=== PATIENT | female | born 1945 | race Caucasian/White ===

== ENCOUNTER 2018-02-10 11:50 | Inpatient (IN) | payer MEDICARE ==
[~2018-02-10] VITALS: Ht 160 cm; Wt 113.4 kg
[~2018-02-10 11:50] MED LIST: ALEVE220 MG PO; ALLEGRA180 MG PO; ASPIRIN325 OR; ATENOLOL 25 MG25 M1 PO; CIPRO500 MG PO; CLARITIN10 MG PO; COLACE100 MG PO; CRANBERRY450 M1 PO; CYMBALTA30 MG PO; DETROL LA2 MG PO; ENABLEX15 MG PO; FEXOFENADINE H180 MG PO; FIBERCON625 M1 PO; FLONASE 0.05%50 MCG NASAL; HYDROCODON-ACE1 EAC8 PO; K-DUR10 MEQ PO; KEFLEX500 MG PO; KLOR-CON 10 ER10 MEQ PO; KLOR-CON 1010 MEQ PO; LASIX 40 MG TAB40 M1 PO; LASIX 40 MG TAB40 M2 PO; LASIX 40 MG TAB40 MG PO; LEVAQUIN 500 M500 M2 PO; LOTENSIN20 MG PO; LOTENSIN40 MG PO; MACROBID 100 M100 M1 PO; MILK OF MA2400 MG/10 PO; MIRALAX17 GM PO; NEXIUM40 MG PO; NITROGLYCERIN0.4 MG SL; NORCO 10-325 T1 EACH PO; NYSTATIN1 EA10; OXYCONTIN20 M1 PO; OXYCONTIN20 MG PO; PAXIL10 MG; PLAVIX OR; POTASSIUM20 PO; PREDNISONE 20 M20 MG PO; PREMARIN0.625 MG; PROTONIX40 M1 PO; SENOKOT-S1 TA1 PO; SINGULAIR 10 MG10 M1 PO; SYMBICORT160 MCG/4. INH; TOLTERODINE TART2 MG; VICODIN ES TAB1 EACH PO
[2018-02-10 11:56] VITALS: BP 143/78
[2018-02-10 12:26] LABS: ABSOLUTE BASOPHILS 0.1 thou/uL (0.0-0.2); ABSOLUTE EOSINOPHILS 0.1 thou/uL (0.0-0.7); ABSOLUTE LYMPHOCYTES 2.3 thou/uL (0.8-5.3); ABSOLUTE MONOCYTES 0.7 thou/uL (0.0-1.2); ABSOLUTE NEUTROPHILS 2.9 thou/uL (1.6-8.1); BASOPHILS 1.1 %; EOSINOPHILS 1.9 %; HEMOGLOBIN 13.2 gm/dL (12.0-15.0); LYMPHOCYTES 37.9 %; MCH 33.7 pg (26.0-34.0); MCHC 33.7 g/dL (28.0-37.0); MCV 99.8 fL (80.0-100.0); MONOCYTES 11.6 %; MPV 7.1 fl. (7.2-11.1); NUCLEATED RBCS 0 /100WBC; PLATELET COUNT* 214 thou/uL (150-400); POLYS 47.5 %; RDW-CV 13.5 % (10.5-14.5); WBC 6.2 thou/uL (4.0-11.0)
[2018-02-10 12:35] LABS: CALCIUM 8.8 mg/dL (8.5-10.1); CREATININE 1.1 mg/dL (0.6-1.3); POTASSIUM 4.2 mmol/L (3.5-5.1)
[2018-02-10 12:36] LABS: ALBUMIN 3.1 g/dL (3.4-5.0); TOTAL BILIRUBIN 0.4 mg/dL (<0.1-1.0); TOTAL PROTEIN 7.3 g/dL (6.4-8.2)
[2018-02-10 15:00] VITALS: BP 142/58
[2018-02-10 15:30] VITALS: BP 146/91
[2018-02-11 03:50] LABS: HEMATOCRIT 34.6 % (37.0-47.0); HEMOGLOBIN 11.7 gm/dL (12.0-15.0); MCH 33.8 pg (26.0-34.0); MCHC 33.9 g/dL (28.0-37.0); MCV 99.8 fL (80.0-100.0); MPV 7.2 fl. (7.2-11.1); RBC 3.47 mil/uL (4.20-5.00); RDW-CV 13.3 % (10.5-14.5); WBC 5.2 thou/uL (4.0-11.0)
[2018-02-11 04:25] LABS: CALCIUM 8.5 mg/dL (8.5-10.1); CREATININE 0.9 mg/dL (0.6-1.3); MAGNESIUM 2.3 mg/dL (1.8-2.4); POTASSIUM 4.3 mmol/L (3.5-5.1)
[2018-02-11 09:30] VITALS: BP 124/60
[2018-02-11 15:46] VITALS: BP 118/68
[2018-02-11 20:45] VITALS: BP 137/72
[2018-02-12 09:00] VITALS: BP 107/43
[2018-02-12 15:50] VITALS: BP 152/85
[2018-02-13 11:44] VITALS: BP 117/60
[2018-02-13] MEDS ORDERED: [UNRECOGNIZED DRUG - OTHER] RC (12:14)
[2018-02-13 12:16] VITALS: BP 117/60
== END 2018-02-13 13:31 | DRG 389 ==
LOC: M.ERS 11:50 → M.ORTHSURG 14:05 → M.TBA-ER 14:05 → M.ORTHSURG 15:09
PROVIDERS: Physician Assistant; ADMIT Family Medicine
DX: K56.41 Fecal impaction (principal); J96.11 Chronic respiratory failure with hypoxia; Z68.41 Body mass index [BMI] 40.0-44.9, adult; E66.2 Morbid (severe) obesity with alveolar hypoventilation; Z71.3 Dietary counseling and surveillance; K80.20 Calculus of gallbladder without cholecystitis without obstruction; G89.29 Other chronic pain; J44.9 Chronic obstructive pulmonary disease, unspecified; I10 Essential (primary) hypertension; I25.10 Atherosclerotic heart disease of native coronary artery without angina pectoris; F17.210 Nicotine dependence, cigarettes, uncomplicated; Z90.710 Acquired absence of both cervix and uterus; Z95.5 Presence of coronary angioplasty implant and graft; Z79.51 Long term (current) use of inhaled steroids; Z79.899 Other long term (current) drug therapy; Z88.0 Allergy status to penicillin; Z88.8 Allergy status to other drugs, medicaments and biological substances; Z82.49 Family history of ischemic heart disease and other diseases of the circulatory system

== ENCOUNTER 2018-04-28 10:04 | Inpatient (IN) | payer MEDICARE ==
[2018-04-28] VITALS (16 sets, daily range): BP systolic 78–121; BP diastolic 44–79
[~2018-04-28] VITALS: Ht 157.5 cm; Wt 115.9 kg
[~2018-04-28 10:04] MED LIST changes: +[UNRECOGNIZED DRUG - OTHER] RC
[2018-04-28 10:48] LABS: HEMATOCRIT 36.2 % (37.0-47.0); HEMOGLOBIN 11.5 gm/dL (12.0-15.0); MCH 31.9 pg (26.0-34.0); MCHC 31.8 g/dL (28.0-37.0); MCV 100.4 fL (80.0-100.0); MPV 8.4 fl. (7.2-11.1); NUCLEATED RBCS 0 /100WBC; PLATELET COUNT* 273 thou/uL (150-400); RDW-CV 14.1 % (10.5-14.5); WBC 21.8 thou/uL (4.0-11.0)
[2018-04-28 10:57] LABS: BE -11.9 mmol/L (-2 to +3); HCO3 14.4 mmol/L (22.0-26.0); PCO2 33.9 mmHg (35.0-45.0); PO2 117.3 mmHg (75.0-100.0)
[2018-04-28 10:59] LABS: pH 7.245 (7.340-7.450)
[2018-04-28 11:02] LABS: CALCIUM 8.8 mg/dL (8.5-10.1); CREATININE 5.7 mg/dL (0.6-1.3)
[2018-04-28 11:05] LABS: POTASSIUM 6.8 mmol/L (3.5-5.1)
[2018-04-28 11:19] LABS: ALBUMIN 1.8 g/dL (3.4-5.0); MAGNESIUM 1.7 mg/dL (1.8-2.4); TOTAL BILIRUBIN 0.8 mg/dL (<0.1-1.0); TOTAL PROTEIN 7.4 g/dL (6.4-8.2)
[2018-04-28 11:31] LABS: ABSOLUTE LYMPHOCYTES 0.7 thou/uL (0.8-5.3); ABSOLUTE MONOCYTES 1.1 thou/uL (0.0-1.2); ABSOLUTE NEUTROPHILS 20.1 thou/uL (1.6-8.1)
[2018-04-28 11:32] LABS: PLATELET ESTIMATE ADEQUATE; POLYCHROMASIA 1+; TOXIC GRANULATION 1+
[2018-04-28] MEDS ORDERED: PROZAC10 MG PO (12:01)
[2018-04-28] MEDS ORDERED: PROTONIX40 M1 PO (12:01)
[2018-04-28] MEDS ORDERED: ZANAFLEX4 MG PO (12:01)
[2018-04-28] MEDS ORDERED: BENAZEPRIL HCL20 MG PO (12:02)
[2018-04-28 16:43] LABS: BE -13.4 mmol/L (-2 to +3); HCO3 13.7 mmol/L (22.0-26.0); PCO2 36.3 mmHg (35.0-45.0); PO2 185.1 mmHg (75.0-100.0); pH 7.196 (7.340-7.450)
[2018-04-28 16:47] LABS: CALCIUM 8.8 mg/dL (8.5-10.1); CREATININE 5.2 mg/dL (0.6-1.3)
[2018-04-28 16:49] LABS: POTASSIUM 6.4 mmol/L (3.5-5.1)
[2018-04-28 19:43] LABS: CALCIUM 7.9 mg/dL (8.5-10.1); CREATININE 4.9 mg/dL (0.6-1.3)
[2018-04-28 19:44] LABS: POTASSIUM 5.8 mmol/L (3.5-5.1)
[2018-04-28 20:33] LABS: URINE BILIRUBIN NEGATIVE (Negative); URINE BLOOD 3+ (Negative); URINE CLARITY CLEAR; URINE COLOR YELLOW; URINE GLUCOSE-RANDOM NEGATIVE (Negative); URINE KETONES NEGATIVE (Negative); URINE LEUKOCYTES-REFLEX 1+ (Negative); URINE NITRITE-REFLEX NEGATIVE (Negative); URINE PROTEIN TRACE (Negative)
[2018-04-28 20:51] LABS: SQUAMOUS 4-10 Moderate /LPF (0-3); URINE RBC 3-10 Few /HPF (0-2); URINE WBC-REFLEX 6-15 Few /HPF (0-5)
[2018-04-28 20:52] LABS: BACTERIA-REFLEX 1-9 Few /HPF (None Seen); CRYSTALS None Seen /LPF (None Seen); FINE GRANULAR CASTS 0-3 Few /LPF (None Seen)
[2018-04-29] VITALS (39 sets, daily range): BP systolic 82–124; BP diastolic 47–77
--- NOTE | 2018-04-29 03:45 | NUR ---
ASSUMED CARE OF PATIENT AT 1900. AFEBRILE. BLOOD PRESSURE TRENDING DOWNWARD, LEVOPHED STARTED. SEE DOCUMENTATION FOR TITRATION. CHEST TUBE REMAINS TO SUCTION. SMALL AMOUNT OF BUBBLING CONSISTENT WITH REPORT. PATIENT COLD AND PULSES WEAK. REMAINS INTUBATED AND SEDATED. RESTRAINTS CHARTED. NOT PROGRESSING TOWARDS POC GOALS.
[2018-04-29 06:00] LABS: BE 1.7 mmol/L (-2 to +3); HCO3 25.6 mmol/L (22.0-26.0); PCO2 37.8 mmHg (35.0-45.0); pH 7.449 (7.340-7.450)
[2018-04-29 06:03] LABS: PO2 133.3 mmHg (75.0-100.0)
[2018-04-29 09:05] LABS: MAGNESIUM 1.4 mg/dL (1.8-2.4); PHOSPHORUS* 4.6 mg/dL (2.5-4.9)
[2018-04-29 09:12] LABS: ALBUMIN 1.5 g/dL (3.4-5.0); CALCIUM 8.5 mg/dL (8.5-10.1); CREATININE 4.2 mg/dL (0.6-1.3); TOTAL BILIRUBIN 0.8 mg/dL (<0.1-1.0); TOTAL PROTEIN 6.4 g/dL (6.4-8.2)
[2018-04-29 09:18] LABS: POTASSIUM 4.4 mmol/L (3.5-5.1)
--- NOTE | 2018-04-29 14:24 | NUR ---
REPORT GIVEN TO JARON WINN. ALL QUESTIONS ANSWERED.
[2018-04-29 15:13] LABS: APTT 31.9 Seconds (25.0-31.3); INR 1.3; PROTIME 12.8 Seconds (9.20-11.50)
[2018-04-29 16:05] LABS: IgA 470 mg/dL (64-422); IgG 880 mg/dL (700-1600); IgM 115 mg/dL (26-217)
--- NOTE | 2018-04-29 16:47 | NUR ---
THIS RN RESUMED CARE OF PT IN AFTERNOON. PT SLOWLY PROGRESSING TOWARD GOALS. BP STABLE ON LEVO. PT REMAINS ON VERSED, AND FENTANYL, REMAINS VENTILATED. AFEBRILE. THICK ORAL SECRETIONS SUCTIONED EVERY 1-2 HOURS, SPUTUM SAMPLE COLLECTED. GREEN REMAINS IN PLACE - URINE SAMPLE COLLECTED. CHEST TUBE REMAINS IN PLACE WITH AIR LEAK - MDS AWARE. NO FAMILY AT BEDSIDE THIS SHIFT.
--- NOTE | 2018-04-29 17:00 | EKG ---
[place] [address] ELECTROCARDIOGRAM REPORT Name: HARIKA PALACIOS Room: [address] ADM IN .R.#: [id number] Admission: 04/28/18 Attend Phys: Emmanuelle Mukherjee Discharge: Date of : 41 Report #: [id number] THIS REPORT FOR: //name// [facility] ED Test Date: 2018-04-28 Test Time: 10:54:34 Pat Name: HARIKA PALACIOS Department: Room: [facility] Gender: F City Council Member: KATARINA ORTEZ : 1945 Requested By: Caterina Mejia Order Number: [id number] MD: Yusef Aponte Measurements Intervals [place] Rate: 57 P: -14 MS: 164 QRS: -38 QRSD: 122 T: 68 QT: 430 QTc: 419 Interpretive Statements Sinus rhythm Left bundle branch block Low voltage throughout Compared to ECG 05/12/2014 02:05:23 Left bundle-branch block now present Sinus tachycardia no longer present Ventricular premature complex(es) no longer present First degree AV block no longer present Fusion complex(es) no longer present Left-axis deviation no longer present T-wave abnormality no longer present Electronically Signed On 04-29-2018 17:00:13 CDT by Yusef Aponte [email or web address] <ELECTRONICALLY SIGNED> By: Yusef Aponte MD, [facility] 04/29/18 1700 1054 1054 Yusef Aponte MD, FAC /EPI
--- NOTE | 2018-04-29 23:34 | CON ---
[address] [address] CONSULTATION Name: HARIKA PALACIOS Room: [address] IN M.R.#: [id number] Admission: 04/28/18 Attend Phys: Emmanuelle Mukherjee Discharge: Date of : 41 Report #: [id number] THIS REPORT FOR: //name// CC: Rafael Rice DATE OF SERVICE: 04/29/2018 CONSULTATION: Infectious Diseases. HISTORY OF PRESENT ILLNESS: The patient is a 72-year-old white female, admitted to the hospital yesterday. The patient has a history of being weak for 2-4 weeks. She became so weak that she fell. She reports that she "slid down." She was found on the ground unconscious by the family. She aroused and was brought to the ER. In the ER, the patient again became somewhat delirious with hypotension and confusion. She was intubated. In the ER, a subclavian catheter was placed for IV access. After the catheter was placed, it was noted patient had developed a pneumothorax, so a chest tube was placed and then repositioned. The patient did have a number of metabolic abnormalities as noted below. The patient was started on Levaquin and taken to the ICU. Infectious Disease consultation was requested. PAST MEDICAL HISTORY: The patient has a past history of coronary artery disease, COPD, hypertension, depression, low back pain, arthritis pain, chronic pain. PROCEDURES: Include abdominal aortic aneurysm stent repair, coronary angioplasty, back surgery, hysterectomy. ALLERGIES: THE PATIENT HAS ALLERGIES TO PENICILLIN AND CEPHALOSPORINS. SOCIAL HISTORY: The patient is . She reportedly continues to smoke a pack per day. She has no history of alcohol or drugs. REVIEW OF SYSTEMS: Unavailable as the patient currently completely sedated, on a ventilator. PHYSICAL EXAMINATION: GENERAL: The patient appears older than her stated age, sedated, but looks comfortable, not in distress. VITAL SIGNS: The patient has been afebrile since coming to the hospital. Blood pressure 97/64, on pressors. SKIN: Very pale without any rash nor exanthem. There is some intertrigo in the right groin. ENT: Negative. Tubes appear to be in the proper position. HEART: Sounds distant S1 and S2, [place], [place] [address] CONSULTATION Name: PHILIPHARIKA Room: [address] IN [facility].#: [id number] Admission: 04/28/18 Attend Phys: Emmanuelle Mukherjee Discharge: Date of : 41 Report #: [id number] LUNGS: Clear to anterior auscultation on the ventilator. She has thick white secretions. ABDOMEN: The belly is obese, soft, not tender. Bowel sounds hypoactive. EXTREMITIES: Somewhat puffy, but otherwise unremarkable. LABORATORY DATA: The blood gas after intubation showed pH 7.19, pCO2 36, pO2 185 on 100% FiO2. CBC showed white count 21.8, hemoglobin 11.5, platelet 273,000. Electrolytes showed sodium 137, potassium 4.4, chloride 99, bicarbonate 28. BUN gone from 107 to 90, creatinine gone from 5.7 to 4.2. Liver function tests showed elevation of alkaline phosphatase at 211. Chest x-ray showed left upper lobe infiltrate and possible right-sided atelectasis or mass. ASSESSMENT AND PLAN: In summary, the patient with number of chronic illnesses, who has been ill and then becomes acutely ill. She was found to be in respiratory failure with pneumonia, renal failure, leukocytosis, and now has suffered a pneumothorax with central line placement. At this time, I would recommend we treat the patient with broad-spectrum antibiotic for community-acquired pneumonia with sepsis. We will use azithromycin plus Zosyn. We will await results of cultures of blood, urine, and sputum. We can send urinary antigens for pneumococcus and legionella. We can check for signs of sepsis with serial lactate and procalcitonins. Check coagulation studies and D-dimer. We will do serial chest x-rays and CBCs. We will continue to watch renal function. If it is not improved, the patient may require dialysis. I appreciate the opportunity of input in the care of this complex patient. I will be happy to follow her through the weekend until Dr. Haddad returns on Monday. <ELECTRONICALLY SIGNED> By: Mp Lopez MD 04/29/18 2334 1414 2053Mp Lopez MD /nt
[2018-04-30] VITALS (69 sets, daily range): BP systolic 70–133; BP diastolic 42–96
--- NOTE | 2018-04-30 06:59 | NUR ---
PT REMIANS ON VENTILATOR. ETT7.5 23 @LIP. AC 12, TV 550, PEEP 5 AND FIO2 50%. PT DOES NOT FOLLOW COMMANDS. GREEN INTACT AND PATENT DRAINING CLOUDY ARVIND URINE TO BEDSIDE BAG. CHEST TUBE INTACT TO LEFT LUNG AND DRIANING SMALL AMOUNT OF BLOODY DRAINAGE NOTED. VSS AND NO ACUTE CHANGES DURIGN SHIFT WILL CONTINUE TO MONITOR
[2018-04-30 07:40] LABS: HEMATOCRIT 33.1 % (37.0-47.0); HEMOGLOBIN 10.7 gm/dL (12.0-15.0); MCH 32.6 pg (26.0-34.0); MCHC 32.4 g/dL (28.0-37.0); MCV 100.9 fL (80.0-100.0); MPV 8.4 fl. (7.2-11.1); RBC 3.28 mil/uL (4.20-5.00); RDW-CV 13.7 % (10.5-14.5); WBC 17.2 thou/uL (4.0-11.0)
[2018-04-30 07:49] LABS: CALCIUM 8.3 mg/dL (8.5-10.1); CREATININE 3.3 mg/dL (0.6-1.3); MAGNESIUM 1.9 mg/dL (1.8-2.4); POTASSIUM 4.6 mmol/L (3.5-5.1)
[2018-04-30 07:59] LABS: BE 0.7 mmol/L (-2 to +3); HCO3 27.3 mmol/L (22.0-26.0); PCO2 52.6 mmHg (35.0-45.0); PO2 72.2 mmHg (75.0-100.0); pH 7.333 (7.340-7.450)
--- NOTE | 2018-04-30 09:17 | CON ---
[address] [address] CONSULTATION Name: HARIKA PALACIOS Room: [address] IN .R.#: [id number] Admission: 04/28/18 Attend Phys: Emmanuelle Mukherjee Discharge: Date of : 41 Report #: [id number] THIS REPORT FOR: //name// CC: Rafael Rice DATE OF SERVICE: 04/29/2018 REFERRING PHYSICIAN: Marcel Rice DO CHIEF COMPLAINT: Respiratory failure. HISTORY OF PRESENT ILLNESS: The patient is a 72-year-old female who presented to the Emergency Room. She has had altered mental status, was found unresponsive by her family. EMS was called. In the Emergency Room, she was evaluated. She had a central line inserted. She had deterioration in her O2 saturations, level of consciousness. She was intubated. The patient was found to have a pneumothorax on the left side, a chest tube was inserted. REVIEW OF SYSTEMS: Not available. ALLERGIES: CELEBREX, KEFLEX, PENICILLIN. PAST MEDICAL HISTORY: COPD, hypertension, coronary artery disease status post stents, abdominal aortic aneurysm repair, rosacea, some sort of throat surgery, details are not available. She has had a hysterectomy as well. She had spinal disk surgery in the past and carpal tunnel surgery. SOCIAL HISTORY: She is a daily smoker, amount unknown. FAMILY HISTORY: Not obtainable. CURRENT MEDICATIONS: Levophed, fentanyl, midazolam. PHYSICAL EXAMINATION: VITAL SIGNS: Blood pressure 116/72, respiratory rate of 11, pulse rate 65, regular, temperature 97.7 degrees, weight 219 pounds. GENERAL APPEARANCE: Sedated and intubated. Orogastric tube. She has a right chest tube. Burgess catheter in place as well. HEAD: Atraumatic. EYES: Pupils are round, equal, reactive. ORAL CAVITY: Moist. No lesions. FACE: No facial swelling or edema. She has some facial hair present on her chin. There is no edema present. NOSE: Nasal passages are patent. EARS: External auricular structures are normal. There [place] [address] CONSULTATION Name: PALACIOSHARIKA Room: [address] IN [facility]#: [id number] Admission: 04/28/18 Attend Phys: Emmanuelle Mukherjee Discharge: Date of : 41 Report #: [id number]. NECK: No adenopathy. She has a bulky neck. No carotid bruits. JVD negative. CHEST: Coarse breath sounds, left rhonchi. No crackles. CARDIOVASCULAR: Regular rhythm, distant heart tones. ABDOMEN: Obese. No organomegaly or tenderness. EXTREMITIES: Warm to touch. There is no edema. SKIN: Warm and dry without rash. NEUROLOGIC: She is sedated. MEDICAL IMAGING STUDIES: Chest x-ray today reveals bilateral opacities with evidence of consolidation, left chest tube in place, no obvious pneumothorax. The ET tube is in adequate position. The packing room supervisor felt that there was residual pneumothorax on the left side. LABORATORY DATA: Sodium 137, potassium 4.4, chloride 99, CO2 of 28, BUN of 90, creatinine 4.2, glucose 131. Total protein, alkaline phosphatase is normal as is the SGOT. EGFR is 10. INR 1.3. Hemoglobin and hematocrit of 11.5 and 36.2 with a white count of 21,800. Arterial blood gas today reveals pH 7.45, pCO2 of 38, pO2 of 133, bicarbonate 25. This is on 60% FiO2. She has been weaned down to 40%, PEEP of 5, tidal volume 650. ASSESSMENT: 1. Pneumonia. 2. Respiratory failure requiring intubation. 3. Chronic obstructive airways disease. 4. Chronic kidney disease superimposed on acute kidney disease. 5. Left pneumothorax status post chest tube insertion. 6. Coronary artery disease. 7. Peripheral vascular disease. PLAN: Continue with antibiotic therapy. We will initiate aerosol treatments. I do not see a need for steroids at this time. Followup x-ray, ABGs and ventilator adjustments will be made accordingly. <ELECTRONICALLY SIGNED> By: Alfred Weinstein MD 04/30/18 0917 0930 [id number] Weinstein MD /nt
--- NOTE | 2018-04-30 12:01 | NUR ---
PATIENT CONVERTED FROM SINUS TACHYCARDIA TO A-FIB WITH RAPID RATE. DR RENEE PAGED. AWAITING RESPONSE.
[2018-04-30 12:08] LABS: LAMBDA FREE LIGHT CHAINS 65.2 mg/L (5.7-26.3)
--- NOTE | 2018-04-30 17:09 | NUR ---
PATIENT SOMEWHAT PROGRESSING TOWARDS GOALS. CONVERTED FROM NSR TO A-FIB TODAY, RATE CONTROLLED BUT AT TIMES TACHY IN 120S AND 130S. CARDIZEM GTT STARTED AT 5MG/HR. LEVOPHED TITRATED DOWN TO 2 MCG/MIN. FENTANYL AND VERSED FOR SEDATION, REFER TO MED TITRATIONS. MORE RESTLESS AT BEGINNING OF SHIFT, NOW CALM, BREATHING WITH THE VENTILATOR, BUT STILL AWAKE TO STIMULATION. CHEST TUBE REMAINS IN PLACE TO LEFT CHEST, MINIMAL BUBBLING WITH INSPIRATION NOTED. PATIENT DOES HAVE SUBCUTANEOUS EMPYSEMA AROUND CHEST TUBE SITE AND CENTRAL LINE. CENTRAL LINE DRAWS BACK BLOOD IN ALL PORTS EXCEPT BROWN PORT. Q2 TURNS TO MAINTAIN FURTHER SKIN INTEGRITY, PATIENT HAS NOTED BLISTERS AND BRUSIING TO COCCYX, APPEARS TO BE DEEP TISSUE INJURY. PER SON PATIENT HAS BEEN IMMOBILE FOR YEARS. HOWEVER, SKIN REMAINS INTACT TO BOTTOM. PHOTOS TAKEN YESTERDAY. SONCIERRA BROUGHT IN DPOA PAPERWORK, COPIED AND PLACED IN CHART. UPDATED BY PHYSICIAN AND DENIES FURTHER CONCERNS ABOUT CURRENT PLAN OF CARE. PER PULMONARY POSSIBLE WEANING TRIAL TOMORROW.
[2018-05-01] VITALS (35 sets, daily range): BP systolic 77–144; BP diastolic 45–81
[2018-05-01 05:56] LABS: BE -4.2 mmol/L (-2 to +3); HCO3 21.5 mmol/L (22.0-26.0); PCO2 41.6 mmHg (35.0-45.0); PO2 85.7 mmHg (75.0-100.0); pH 7.331 (7.340-7.450)
--- NOTE | 2018-05-01 07:28 | NUR ---
PT REMAINS STABLE ON VENT, FENTANYL AND VERSED GTTS FOR SEDATION THOUGH PT IS EASILY AROUSABLE. CARDIZEM GTT TITRATED TO MAIN HR WNL. LEVOPHED GTT TITRATED FOR MAP >65. COMPLETE BED BATH GIVEN, HAIR SHAMPOOED. AFTER BATH CHEST TUBE DRESSING HAD COME LOOSE AND UNDERLYING GAUZE WAS NOTED TO BE SATURATED WITH SEROSANGUINOUS AND BROWN/GREEN DRAINAGE, AIR LEAK PRESENT. DRESSING REPLACED, PETROLEUM GAUZE PLACED AROUND INSERTION SITE COVERED BY DRAIN SPONGES AND OCCLUSIVE FOAM TAPE. NO AIR LEAK NOTED AT THIS TIME. PT HAS BEEN TURNED Q2HR THROUGHOUT THE SHIFT.
[2018-05-01 12:29] LABS: HEMATOCRIT 33.9 % (37.0-47.0); MCH 32.7 pg (26.0-34.0); MCHC 32.3 g/dL (28.0-37.0); MCV 101.2 fL (80.0-100.0); MPV 8.4 fl. (7.2-11.1); NUCLEATED RBCS 0 /100WBC; PLATELET COUNT* 207 thou/uL (150-400); RBC 3.35 mil/uL (4.20-5.00); RDW-CV 14.4 % (10.5-14.5)
[2018-05-01 12:36] LABS: CALCIUM 9.5 mg/dL (8.5-10.1); CREATININE 2.8 mg/dL (0.6-1.3); POTASSIUM 3.9 mmol/L (3.5-5.1)
[2018-05-01 13:00] LABS: ABSOLUTE LYMPHOCYTES 0.6 thou/uL (0.8-5.3); ABSOLUTE MONOCYTES 0.2 thou/uL (0.0-1.2); ABSOLUTE NEUTROPHILS 15.2 thou/uL (1.6-8.1); METAMYELOCYTES 1 %
[2018-05-01 13:01] LABS: CLUMPED PLTS OCCASIONAL; LARGE PLATELETS OCCASIONAL; POLYCHROMASIA Occasional
[2018-05-01 13:02] LABS: MACROCYTES Occasional
[2018-05-01 14:05] LABS: BE -7.2 mmol/L (-2 to +3); HCO3 18.8 mmol/L (22.0-26.0); PCO2 39.9 mmHg (35.0-45.0); PO2 109.9 mmHg (75.0-100.0)
[2018-05-01 14:08] LABS: pH 7.292 (7.340-7.450)
--- NOTE | 2018-05-01 14:36 | NUR ---
WOUND CARE NOTE: CONSULT RECEIVED FOR WOUNDS. PATIENT PRESENTS WITH MULTIPLE WOUNDS TO HER BILATERAL BUTTOCKS AND SACROCOCCYGEAL REGION, CLUSTERED THEY MEASURE 19.5X20X0.2. AT SACROCOCCYGEAL REGION THERE IS AN EVOLVING DEEP TISSUE INJURY WITH PURPLE DISCOLORATION AND BRUISING. EXCORIATIONS TO BILATERAL BUTTOCKS AND MULTIPLE ULCERATIONS TO BILATERAL MEDIAL BUTTOCKS. CLEANSED ALL, APPLIED Z-GUARD PASTE. TURNED PATIENT TO LEFT SIDE WITH WEDGES. RECOMMEND JANE MATTRESS-IN USE TURN Q2 HOURS-SIDE TO SIDE ONLY UNLESS EATING LIMIT HOB <30 DEGREES IF ABLE ENCOURAGE NUTRITION/HYDRATION ONCE ABLE Z-GUARD PASTE BID AND PRN LIMIT LAYERS OF LINEN UNDER PATIENT.
[2018-05-02] VITALS (21 sets, daily range): BP systolic 91–135; BP diastolic 50–69
[2018-05-02 05:15] LABS: ABSOLUTE LYMPHOCYTES 0.7 thou/uL (0.8-5.3); ABSOLUTE MONOCYTES 0.4 thou/uL (0.0-1.2); ABSOLUTE NEUTROPHILS 11.3 thou/uL (1.6-8.1); HEMATOCRIT 30.6 % (37.0-47.0); HEMOGLOBIN 9.9 gm/dL (12.0-15.0); LYMPHOCYTES 5.8 %; MCH 33.2 pg (26.0-34.0); MCHC 32.4 g/dL (28.0-37.0); MCV 102.5 fL (80.0-100.0); MONOCYTES 2.8 %; MPV 8.6 fl. (7.2-11.1); NUCLEATED RBCS 0 /100WBC; PLATELET COUNT* 152 thou/uL (150-400); POLYS 91.4 %; RBC 2.99 mil/uL (4.20-5.00); RDW-CV 14.2 % (10.5-14.5); WBC 12.4 thou/uL (4.0-11.0)
[2018-05-02 05:24] LABS: CALCIUM 8.5 mg/dL (8.5-10.1); CREATININE 2.6 mg/dL (0.6-1.3)
--- NOTE | 2018-05-02 07:21 | NUR ---
SEDATED ON VENTILATOR, VERSED AND FENTANYL GTTS INFUSING ORDERED. CARDIZEM GTT TITRATED FOR HR WNL. LEVOPHED TITRATED OFF, BP WNL. TOLERATING TUBE FEED, HIGHEST Q4HR RESIDUAL 135ML. TUBE FEED ON HOLD SINCE 0400, NPO FOR BRONCHOSCOPY SCHEDULED AT 1000. COMPLETE BED BATH GIVEN, Z-GUARD APPLIED TO WOUNDS ON BUTTOCKS. PT HAS BEEN TURNED Q2HR THROUGHOUT THE SHIFT.
[2018-05-02 08:10] LABS: BE -7.9 mmol/L (-2 to +3); HCO3 17.3 mmol/L (22.0-26.0); PCO2 34.6 mmHg (35.0-45.0); PO2 73.3 mmHg (75.0-100.0); pH 7.318 (7.340-7.450)
--- NOTE | 2018-05-02 10:15 | NUR ---
INTERDISCIPLINARY ROUNDS: PT ON VENT, HAD BRONCH THIS AM. LONG DISCUSSION WITH SON/CIERRA AT BEDSIDE. HE IS PRIMARY DPOA. CIERRA STATES PT LIVES IN HER HOME, SON DEANDRE LIVES WITH HER. PT ALSO HAS DTR MAIA THAT HELPS CARE FOR PT. PT HAD HOSPITAL STAY AND THEN 18 DAY STAY IN SNF AT [facility], WAS DC'D WITH HH BUT CIERRA CANNOT REMEMBER NAME OF AGENCY. PER CIERRA, HE STATED THAT PT HASN'T DONE WELL SINCE SNF DC, HE FELT SHE WAS DC'D 'TOO SOON'. HE VOICED THAT PT TAKES NARCOTICS AND PREFERS TO MANAGE THEM HERSELF. HE STATED PT SMOKES AND DRINKS 'COKE' DOESN'T EAT TOO WELL. HE DIDN'T THINK SHE HAD BEEN TAKING VERY GOOD CARE OF HERSELF RECENTLY, ASKED IF HE THOUGHT SHE WAS DEPRESSED AND HE SAID 'SHE HASN'T BEEN THE SAME SINCE SPOUSE 20YRS AGO.' HE STATED THAT DEANDRE COOKS AND CLEANS BUT WORKS DURING THE DAY SO PT IS ALONE. CIERRA MANAGES FINANCES AND DOES SHOPPING. AIDEN SETS UP MEDS AND CHECKS ON PT. PT HAS O2, CPAP, NEB, WALKER, SHOWER BENCH AND GRAB BARS. CIERRA VOICED CONCERNS ABOUT PT'S CARE AT [facility], IF NEEDS SNF AGAIN MAY WANT TO DISCUSS OTHER OPTIONS. EXPLAINED SNF BENEFITS, PT HAS USED 18 DAYS AND NOT HAD BREAK IN EPISODE YET. COPY OF DPOA ON CHART. CM TO FOLLOW
--- NOTE | 2018-05-02 19:40 | NUR ---
PT ASSESSMENT CHARTED. VSS AT THIS TIME. LEVOPHED RESTARTED AT 1700 FOR MAP <60. PT HAD EPISODE OF RESPIRATORY CHANGES THAT WERE NOTIFIED TO THE PARKS AND RECREATION MANAGER. VENT SETTINGS CHANGED WITHOUT CHANGE IN STATUS. CHEST XRAY OBTAINED. FENTANYL STOPPED AT 1800 WITH SUCCESSFUL CHANGES IN PT'S BREATHING. CHEST TUBE DRESSING CHANGED. LEFT SUBCLAVIAN CENTRAL LINE DRESSING CHANGED DUE TO LEAKING. CHEST XRAY CONFIRMED THAT CENTRAL LINE IS NOT IN ORIGINAL POSITION BUT IS STILL CENTRALLY LOCATED. THESE RESULTS WERE CALLED TO [facility] .
[2018-05-03] VITALS (51 sets, daily range): BP systolic 84–144; BP diastolic 45–98
[2018-05-03 05:15] LABS: ABSOLUTE LYMPHOCYTES 0.6 thou/uL (0.8-5.3); ABSOLUTE MONOCYTES 0.5 thou/uL (0.0-1.2); ABSOLUTE NEUTROPHILS 14.4 thou/uL (1.6-8.1); BASOPHILS 0.2 %; HEMATOCRIT 31.9 % (37.0-47.0); HEMOGLOBIN 10.2 gm/dL (12.0-15.0); LYMPHOCYTES 3.8 %; MCH 32.5 pg (26.0-34.0); MCHC 31.9 g/dL (28.0-37.0); MCV 101.8 fL (80.0-100.0); MPV 8.9 fl. (7.2-11.1); NUCLEATED RBCS 0 /100WBC; PLATELET COUNT* 152 thou/uL (150-400); RBC 3.13 mil/uL (4.20-5.00); RDW-CV 14.3 % (10.5-14.5); WBC 15.4 thou/uL (4.0-11.0)
[2018-05-03 05:35] LABS: CALCIUM 8.5 mg/dL (8.5-10.1); CREATININE 2.6 mg/dL (0.6-1.3)
--- NOTE | 2018-05-03 06:34 | NUR ---
PATIENT SLOWLY PROGRESSING. TOOK OFF LEVO @ 0300 MAP HAS REMAINED >65. REMAINS ON VERSED AND CARDIZEM. CONTROLLED AFIB ON MONITOR. CHEST TUBE INTACT CONSTENT LEAK AWARE. PT HAD MINIMAL SECRETIONS. TURNED OFF TUBE FEEDS AT BEGINNING OF SHIFT D/T HIGH RESIDUALS. CHECKED RESIDUALS @ MIDNIGHT STAYED HIGH CONNECTED PT TO LIS. RESUMED TUBE FEEDS @ 0330. WILL CONTINUE TO MONITOR CLOSELY. BED TO LOWEST POSITION.
--- NOTE | 2018-05-03 09:50 | PROC ---
[facility] [address] [place] [address] PROCEDURE REPORT Name: HARIKA PALACIOS Room: [address] IN M.R.#: [id number] Admission: 04/28/18 Attend Phys: Emmanuelle Mukherjee Discharge: Date of : 41 Report #: [id number] THIS REPORT FOR: //name// CC: Rafael Rice PROCEDURE: Flexible fiberoptic bronchoscopy. EXAMINATION INDICATION: Copious secretions in an intubated patient. SAMPLES OBTAINED: None. COMPLICATIONS: None. FINDINGS: 1. The distal trachea was normal. 2. The right and left tracheobronchial tree were patent throughout. 3. Minimal amount of secretions present, which were aspirated without difficulty. 4. No evidence of foreign matter or endobronchial lesions. DESCRIPTION OF PROCEDURE: The patient is a 72-year-old female who had respiratory failure, had to be intubated. She had a pneumothorax on the left side. They have been suctioning out copious secretions, thick in nature, clear over the past 48-72 hours. As a result, she was started on Mucomyst and bronchoscopy examination was planned. She is on sedation with fentanyl and Versed. She was properly sedated. The adaptor was placed at the end of the endotracheal tube. A disposable bronchoscope was used to complete the procedure. The bronchoscope was inserted through the adaptor and advanced through the endotracheal tube. The godfrey was sharp. There were no abnormalities there. There was scant amount of secretions bilaterally, approximately 10 mL of saline used to lavage out the left and right tracheobronchial tree, aspirated without difficulty. Very few in the way of plugs. There were no endobronchial lesions as outlined. <ELECTRONICALLY SIGNED> By: Alfred Weinstein MD 05/03/18 0950 1011 [id number] Weinstein MD /nt
--- NOTE | 2018-05-03 15:00 | NUR ---
SPOKE WITH SON (DPJENNIFER) CIERRA THIS AFTERNOON AND DAUGHTER OVER THE PHONE. SON INDICATES TO THIS RN THAT PATIENT WOULDNT WANT A TRACHEOSTOMY OR A PEG TUBE OR TO LIVE BRASS PLATER ON THE VENTILATOR. UPDATED HIM ON PATIENT STATUS AND ANSWERED ALL SONS QUESTIONS. ASKED HIM TO BE HERE AROUND 8-830AM TOMORROW MORNING TO SPEAK WITH THE DOCTOR AND GO OVER OPTIONS. EXPLAINED TO HIM OPTIONS THAT ARE AVIALBLE IF AFTER SPEAKING TO DOCTOR AND HE UNDERSTOOD. MORE FAMILY TO VISIT [facility]. UPDATED DR ERNEE THAT THE FAMILY WANTS TO SPEAK WITH DOC IN THE MORNING. PATIENT CONTINUES ON VENTILATOR, HAS CHEST TUBE TO WATER SEAL, PRECEDEX STARTED TODAY AND VERSED AND FENTANYL D/C. PRESSURES REMAIN SOFT BUT NOT REQUIRING LEVOPHED AT THIS TIME. CADIZEM GTT CONTINUED.
[2018-05-04] VITALS (29 sets, daily range): BP systolic 107–145; BP diastolic 55–87
--- NOTE | 2018-05-04 04:49 | NUR ---
PT REMAINS ON VENT FIO2 60% SATS 96% WITH PRECEDEX FOR SEDATION. PT AFIB ON MONITOR. PT CONTINUES WITH CARDIZEM GTT. PT WITH LEFT CT TO WATERSEAL. AM LABS TO BE DRAWN AND REVIEWED. PT RECENT INCREASED WORK OF BREATHING ON VENT, LABORED WITH ACCESSORY MUSCLES.
[2018-05-04 06:02] LABS: CREATININE 2.7 mg/dL (0.6-1.3); POTASSIUM 3.9 mmol/L (3.5-5.1)
--- NOTE | 2018-05-04 15:50 | NUR ---
MET WITH FAMILY WITH DR BRASHER THIS AFTERNOON TO DISCUSS PROGNOSIS AND POSSIBLE COMFORT CARE. F/U CALL WITH SON/DPJENNIFER NORTON THIS AFTERNOON TO ANSWER QUESTIONS AND OFFER SUPPORT. HE IS TALKING WITH FAMILY AND HOPES TO COME TO RESOLUTION WITH DECISIONS BY MONDAY. HE ASKED ABOUT AND CREMATION RESOURCES, GAVE HIM INFO. UPDATE TO JARON MIRANDA. CM TO FOLLOW AND ASSIST
--- NOTE | 2018-05-04 18:15 | NUR ---
PATIENT NOT PROGRESSING TOWARDS GOALS. FAMILY HAD MEETING WITH DR BRASHER, DISCUSSED PROGNOSIS OF CARE, FAMILY AGREES THAT PATIENT WOULD NOT WANT TO BE CODED IF SHE LOST HER PULSE OR WENT INTO ARRTHYMIAS. PATIENT NOW A DNR. FAMILY IS GETTING EVERYONE TOGETHER AND TAKING A DAY OR SO TO GRIEVE AND MAKE SURE EVERYONE CAN VISIT AND SON SAID POSSIBLY MONDAY THEY WOULD LIKE TO GO COMFORT CARE FOR HER. HER AGREED THAT PATIENT WOULD NOT WANT A TRACH OR PEG AND THAT SHE WOULD NOT WANT LIFE SAVING MEASURES OR TO LIVE ON SUPPORTIVE MACHINES FOR LONG PERIODS OF TIME. PATIENT REMAINS OUT OF RESTRAINTS AND ONLY ON PRECEDEX AND CARDIZEM. TOLERATING TUBE FEEDS THIS SHIFT AT 30ML BUT RESIDUALS SLOWLY INCREASING. CHEST TUBE REMAINS IN PLACE, VITALS STABLE. NO WEANING TRIAL TODAY, STILL REQUIRING 60% FIO2. NO BM. ANTIBIOTICS CONTINUED. PVCS ON MONITOR. SUPPLY CHAIN ENGINEER IN PLACE. BED IN LOWEST POSITION.
[2018-05-05] VITALS (18 sets, daily range): BP systolic 100–125; BP diastolic 52–74
[2018-05-05 04:26] LABS: HEMATOCRIT 31.7 % (37.0-47.0); HEMOGLOBIN 10.4 gm/dL (12.0-15.0); MCH 32.8 pg (26.0-34.0); MCHC 32.7 g/dL (28.0-37.0); MCV 100.2 fL (80.0-100.0); MPV 9.4 fl. (7.2-11.1); RBC 3.16 mil/uL (4.20-5.00); RDW-CV 13.5 % (10.5-14.5)
[2018-05-05 04:45] LABS: ALBUMIN 1.6 g/dL (3.4-5.0); CALCIUM 7.6 mg/dL (8.5-10.1); CREATININE 2.6 mg/dL (0.6-1.3); MAGNESIUM 2.1 mg/dL (1.8-2.4); POTASSIUM 4.3 mmol/L (3.5-5.1); TOTAL BILIRUBIN 0.5 mg/dL (<0.1-1.0)
--- NOTE | 2018-05-05 06:38 | NUR ---
PT DOES NOT RESPOND TO COMMANDS, GAG REFLEX INTACT AT THIS TIME. NEPHRO TUBE FEEDING INTACT TO L NARES NGT AND INFUSING AT 35CC/HR VIA PUMP ORDERED. RESIDUALS HAVE BEEN 25-30, TUBE FEEDING INCREASED FORM 30-35 CC/HR/ ETT 735 INTACT AT 23@LIP. VENTILATOR NTACT AC 18. TV 600, FIO2 60%, PEEP 0. LEFT CHEST TUBE INTACT AND REMAINS H2O SEALED.CARDIZEM GTT INFUSING AT 4CC/HR VIA PUMP AND PRECEDEX INFUSING AT 1.4MCQ/HR ORDERED VIA PUMP. VSS AND NO ACUTE CHANGES DURING SHIFT. WILL CONTINUE TO MONITOR
--- NOTE | 2018-05-05 14:49 | NUR ---
PATIENT REMAINS ON VENT NO RESPONSE. SON DPOA IN TO SEE PT DISCUSSED WITH DR BRASHER TO WITHOLD CARE AT 1000 AM 05/08. RECEIVED HOME INFO ON CHART. ORDER ON CHART PER DR SAHU.
--- NOTE | 2018-05-05 17:48 | NUR ---
REPLACED GREEN CATH CURRENT CATH WAS PLUGGED, PT HAD COPIUS URINE AROUND GREEN.
[2018-05-06] VITALS (12 sets, daily range): BP systolic 73–130; BP diastolic 46–74
--- NOTE | 2018-05-06 06:30 | NUR ---
Pt remains unresponsive. LCT to H2O seal, air leak noted. Tolerating TF with 0-8 ml residuals. VSS. Remains in Afib per monitor, rate 100s-110s. 1550 yellow urine out per navarro catheter. Will continue to monitor.
--- NOTE | 2018-05-06 08:18 | NUR ---
ASSUMED CARE OF PATIENT THIS SHIFT. DAUGHTER AND GRANDSON PRESENT AT THIS TIME. ALL FAMILY WILL BE HERE AROUND 1000AM TODAY TO WITHDRAW CARE. PATIENT REMAINS UNRESPONSIVE WITH SLIGHT HEAD MOVEMENT AND EYE OPENING. DOES NOT TRACK OR FOLLOW COMMANDS. COMFORT CARE ORDERS OBTAINED AND ON CHART TO 10AM. DR BRASHER HAS ROUNDED AND AT THIS TIME ALL FAMILY QUESTIONS HAVE BEEN ANSWERED.
--- NOTE | 2018-05-06 10:48 | NUR ---
1045 EXTUBATION AND COMFORT CARE ORDERS INITIATED. MEDICATION GIVEN FOR AIR HUNGER AT EXTUBATION. PATIENT COMFORTABLE AT THIS TIME. FAMILY PRESENT IN ROOM.
--- NOTE | 2018-05-06 12:51 | NUR ---
PATIENT REMAINS UNRESPONSIVE STILL. HEART RATE IN 150'S, MORIPHINE, ATIVAN, FENTANYL GIVEN FOR PAIN, AIR HUNGER AND COMFORT. FAMILY REMAINS AT BEDSIDE AND SUPPORTIVE. ONE SON OF PATIENT IS VERY AGGITATED WITH MEDICATIONS BEING GIVEN, EDUCATED HIM THAT ALL MEDS ARE GIVEN FOR PAIN/COMFORT AND AIR HUNGER AND ANXIETY. HE CONTINUES TO VOICE THAT HE THINKS WE ARE "DOPING HER UP AND NOT LETTING HER COME AROUND TO SPEAK." THE REST OF THE FAMILY IS VERY CALM, DOES NOT FEEL THE SAME, UNDERSTANDS THE PURPOSE OF MEDICATION AND WOULD LIKE IT GIVEN WELL. WILL CONTINUE TO EDUCATE SON ON MEDICATION GIVEN.
--- NOTE | 2018-05-06 18:30 | NUR ---
PATIENT REMAINS UNRESPONSIVE THIS SHIFT. HEART RATE STILL ELEVATED IN 160'S. MEDICATIONS GIVEN FOR PAIN AND AIR HUNGER. FAMILY IN AND OUT OF ROOM THIS AFTERNOON. PATIENT TO MOVE TO ROOM 101 AT 7PM.
--- NOTE | 2018-05-07 05:51 | NUR ---
PATIENT ARRIVED TO UNIT AT APROXIMATELY 2000. FAMILY AT BEDSIDE. PATIENT UNRESPONSIVE EVEN TO PAINFUL STIMULI/STERNAL RUB. ASSESSMENT CHARTED. ON O2 AT 3L/NC. FAMILY DID NOT WANT US TO TURN PATIENT GRANDSON SAID THEY WOULD TURN PATIENT. PATIENT RESTING QUIETLY IN BED WITH NO S/S OF DISTRESS. USING IV PAIN MED TO CONTROL PAIN. CHEST TUBE BUBBLING SLIGHTLY. ICU NURSE SAID CHEST TUBE HAS SLIGHT LEAK AND DR AWARE. GREEN CATHETER PATENT WITH CLEAR YELLOW URINE. WILL CONTINUE TO MONITOR.
--- NOTE | 2018-05-07 06:00 | NUR ---
PATIENT WAS NOTED TO HAVE NO PULSE OR BREATH SOUNDS AT 0058. FAMILY AT BEDSIDE. DR NOTIFIED AND NURSING FINE CHEMICALS OPERATOR NOTIFIED. CURRENTLY AWAITING TRANSPLANT TRANSPORTATION TO TRANSCRIBING MACHINE OPERATOR PATIENT.
--- NOTE | 2018-05-07 08:58 | NUR ---
MTN HERE TO [employer] ART TEACHER PATIENT 0710.
--- NOTE | 2018-05-07 09:56 | NUR ---
COOLING BLANKET APPLIED AND SALINE GTTS APPLIED TO EYES INSTRUCTED BY MTN AFTER PATIENT HAD PASSED.
--- NOTE | 2018-05-11 08:50 | CON ---
[address] [address] CONSULTATION Name: HARIKA PALACIOS Room: [address] IN M.R.#: [id number] Admission: 04/28/18 Attend Phys: Emmanuelle Mukherjee Discharge: 05/07/18 Date of : 41 Report #: [id number] THIS REPORT FOR: //name// CC: Rafael Rice DATE OF SERVICE: 04/28/2018 CONSULTING PHYSICIAN: Dr. Rice. REASON FOR NEPHROLOGY CONSULTATION: Hyperkalemia, metabolic acidosis and acute kidney injury. REASON FOR ADMISSION: The patient was brought in because of cough, confusion and shortness of breath. HISTORY OF PRESENT ILLNESS: This is a 72-year-old female who has past medical history of COPD, coronary artery disease and hypertension, who was brought in by EMS because of confusion, cough and shortness of breath. As per the patient's son, the patient was found down. When EMS arrived, she was found to be tachypneic, confused and dehydrated. Initial chest x-ray showed left lung pneumonia. Central line was placed and unfortunately she had iatrogenic pneumothorax of the left lung and because of which, a chest tube was placed. Her initial potassium was 6.8; creatinine was 5.7, whereas her baseline was 0.9 in February and she also has metabolic acidosis with some combination of respiratory acidosis. She also had to be started on pressors. She is currently intubated and sedated and she is on pressors and she has a chest tube on the left side. I do not know if she takes NSAIDs or not, and I do know if she has a history of kidney stones or not. She was anuric, but now she started making some urine. She has been receiving IV fluids and right now she is getting bicarbonate drip and potassium is slightly better at 6.4 and creatinine is slightly better at 5.2 this evening. She does take benazepril, potassium and Lasix at home. ALLERGIES: To CEPHALEXIN, PENICILLIN G and CELECOXIB. REVIEW OF SYSTEMS: We cannot obtain right now, she is intubated and sedated. PAST MEDICAL AND SURGICAL HISTORY: Includes hysterectomy, carpal tunnel surgery, COPD, hypertension, cardiac stents, tonsillectomy, abdominal aortic aneurysm repair, rosacea and throat surgery. FAMILY HISTORY: Heart disease and hypertension. HOME MEDICATIONS: Include fluoxetine, pantoprazole, tizanidine, , nitroglycerin, furosemide, benazepril, oxycodone, cranberry, shark liver oil [place] [address] CONSULTATION Name: HARIKA PALACIOS Room: [address] M.R.#: [id number] Admission: 04/28/18 Attend Phys: Emmanuelle Mukherjee Discharge: 05/07/18 Date of : 41 Report #: [id number] SOCIAL HISTORY: Current every-day smoker and she does not use drugs or use recreational or use alcohol. Lives with her son. PHYSICAL EXAMINATION: VITAL SIGNS: Blood pressure is 116/65 now on pressors, pulse ox 99%. She is 100% FIO2, respiratory rate 16, pulse rate 89, temperature 36.7. GENERAL: She is intubated and sedated. HEAD, EYES, EARS, NOSE AND THROAT: ET tube is in place and mucous membranes are dry. NECK: There is no JVD. CHEST: Diminished breath sounds bilaterally. No crackles or rhonchi. CARDIOVASCULAR: S1, S2 normal. No murmurs heard. ABDOMEN: Distended, but soft and bowel sounds are diminished. EXTREMITIES: There is no lower extremity edema, symmetrical extremities. SKIN: Very dry. NEUROLOGICAL FUNCTION: Currently, she is intubated and sedated, I cannot assess. NEUROLOGIC/PSYCHIATRIC: I cannot assess right now. LABORATORY DATA: WBC 22, hemoglobin 11.5, potassium 6.4, CO2 17, creatinine 5.2 now. Other labs were reviewed. IMAGING: Chest x-ray was reviewed. ASSESSMENT AND PLAN: 1. Acute kidney injury due to volume depletion, FRANCES inhibitor, Lasix and extreme hypotension. Baseline creatinine 0.9 in February, creatinine was 5.7 on admission and now it is slowly getting better. The patient is getting IV fluids. 2. Hyperkalemia, due to potassium supplementation and benazepril use, dehydration and renal insufficiency, slowly improving. Labs will be checked again at 7:00 p.m. 3. Metabolic acidosis, high anion gap as well as respiratory acidosis, she has history of chronic obstructive pulmonary disease, also has renal insufficiency. 4. Septic shock due to left lung pneumonia, on antibiotics as per primary. 5. Left-sided pneumothorax which is iatrogenic, the patient has chest tube and primary is following. PLAN: 1. We will follow her labs closely. Currently, she is very dehydrated. 2. Labs will be checked again in 1 hour. Continue with bicarbonate drip at 100 mL an hour. We will also check a renal ultrasound and UA and serum immunofixation, serum kappa to lambda light chain ratio. I spent more than 35 minutes in the patient's critical care [place] [address] CONSULTATION Name: HARIKA PALACIOS Room: [address]#: [id number] Admission: 04/28/18 Attend Phys: Emmanuelle Mukherjee Discharge: 05/07/18 Date of : 41 Report #: [id number] patient's chart and placing orders and ordering medications and examining the patient, discussion with the patient's nurse and we will continue to follow along with you. If potassium does not improve or if her urine output does not turkey picker tonight and acidosis is worsening, we will dialyze her. <ELECTRONICALLY SIGNED> By: Olive Elizabeth MD 05/11/18 0850 [id number] [id number] Elizabeth MD /nt
--- NOTE | 2018-05-28 15:01 | NUR ---
RECEIVED MESS[facility]CT [facility]. CALLED AND DISCUSSED CONCERNS WITH DIGNA. [phone]
== END 2018-05-07 00:58 | DRG 870 ==
LOC: M.ERS 10:04 → M.ICU 12:21 → M.TBA-ER 12:21 → M.ICU 15:30 → M.ORTHSURG 05-06 21:18
PROVIDERS: Family Medicine; Internal Medicine; Internal Medicine Infectious Disease; Internal Medicine Pulmonary Disease; Personal Emergency Response Attendant; ADMIT Internal Medicine
PROC: 5A1955Z Respiratory Ventilation, Greater than 96 Consecutive Hours (ICD-10-PCS; principal; 2018-04-28)
PROC: 0WWB30Z Revision of Drainage Device in Left Pleural Cavity, Percutaneous Approach (ICD-10-PCS; principal; 2018-04-28)
PROC: 0W9B30Z Drainage of Left Pleural Cavity with Drainage Device, Percutaneous Approach (ICD-10-PCS; principal; 2018-04-28)
PROC: 0BH17EZ Insertion of Endotracheal Airway into Trachea, Via Natural or Artificial Opening (ICD-10-PCS; principal; 2018-04-28)
PROC: 02HV33Z Insertion of Infusion Device into Superior Vena Cava, Percutaneous Approach (ICD-10-PCS; principal; 2018-04-28)
PROC: 0B958ZZ Drainage of Right Middle Lobe Bronchus, Via Natural or Artificial Opening Endoscopic (ICD-10-PCS; 2018-05-03)
PROC: 0B9B8ZZ Drainage of Left Lower Lobe Bronchus, Via Natural or Artificial Opening Endoscopic (ICD-10-PCS; 2018-05-03)
PROC: 0B938ZZ Drainage of Right Main Bronchus, Via Natural or Artificial Opening Endoscopic (ICD-10-PCS; 2018-05-03)
PROC: 0B968ZZ Drainage of Right Lower Lobe Bronchus, Via Natural or Artificial Opening Endoscopic (ICD-10-PCS; 2018-05-03)
PROC: 0B948ZZ Drainage of Right Upper Lobe Bronchus, Via Natural or Artificial Opening Endoscopic (ICD-10-PCS; 2018-05-03)
PROC: 0B988ZZ Drainage of Left Upper Lobe Bronchus, Via Natural or Artificial Opening Endoscopic (ICD-10-PCS; 2018-05-03)
PROC: 0B978ZZ Drainage of Left Main Bronchus, Via Natural or Artificial Opening Endoscopic (ICD-10-PCS; 2018-05-03)
DX: A41.9 Sepsis, unspecified organism (principal); J18.9 Pneumonia, unspecified organism; R65.21 Severe sepsis with septic shock; J96.20 Acute and chronic respiratory failure, unspecified whether with hypoxia or hypercapnia; N17.9 Acute kidney failure, unspecified; E87.2 Acidosis; J93.9 Pneumothorax, unspecified; L03.317 Cellulitis of buttock; N13.30 Unspecified hydronephrosis; Z68.42 Body mass index [BMI] 45.0-49.9, adult; J44.9 Chronic obstructive pulmonary disease, unspecified; F17.210 Nicotine dependence, cigarettes, uncomplicated; E87.5 Hyperkalemia; I25.10 Atherosclerotic heart disease of native coronary artery without angina pectoris; I95.9 Hypotension, unspecified; E86.0 Dehydration; I73.9 Peripheral vascular disease, unspecified; F32.9 Major depressive disorder, single episode, unspecified; G89.29 Other chronic pain; M19.90 Unspecified osteoarthritis, unspecified site; I48.91 Unspecified atrial fibrillation; I12.9 Hypertensive chronic kidney disease with stage 1 through stage 4 chronic kidney disease, or unspecified chronic kidney disease; J98.01 Acute bronchospasm; N18.3 Chronic kidney disease, stage 3 (moderate); E66.01 Morbid (severe) obesity due to excess calories; J98.2 Interstitial emphysema; Z66 Do not resuscitate; N30.90 Cystitis, unspecified without hematuria; B96.20 Unspecified Escherichia coli [E. coli] as the cause of diseases classified elsewhere; Z90.710 Acquired absence of both cervix and uterus; Z90.89 Acquired absence of other organs; Z95.5 Presence of coronary angioplasty implant and graft; Z79.899 Other long term (current) drug therapy; Z88.0 Allergy status to penicillin; Z88.8 Allergy status to other drugs, medicaments and biological substances; Z82.49 Family history of ischemic heart disease and other diseases of the circulatory system